=== PATIENT | female | born 1955 | race Caucasian/White ===

== ENCOUNTER 2017-08-19 20:14 | Emergency (ER) | payer MEDICARE, MEDICAID ==
[~2017-08-19] VITALS: Ht 165.1 cm; Wt 65.8 kg
[2017-08-19] MEDS ORDERED: HYDROcodone-ACET 10/325MG TAB PO ONE (21:15)
[2017-08-19 22:45] VITALS: BP 159/98
== END 2017-08-19 22:26 | disposition home or self-care (01) ==
LOC: ER 20:18
DX: S92.001A Unspecified fracture of right calcaneus, initial encounter for closed fracture (principal); I10 Essential (primary) hypertension; W22.8XXA Striking against or struck by other objects, initial encounter; Y93.89 Activity, other specified; Y99.8 Other external cause status; Y92.89 Other specified places as the place of occurrence of the external cause
CPT/HCPCS: 29515; 73610

== ENCOUNTER 2019-08-02 09:34 | Emergency (ER) | payer MEDICARE, MEDICAID ==
[~2019-08-02] VITALS: Ht 167.6 cm; Wt 59.0 kg
[2019-08-02] MEDS ORDERED: SODIUM CHLORIDE 0.9% 1,000 ML IV ONE ×2 (09:46)
[2019-08-02 10:25] LABS: Calcium 9.1 mg/dL (8.5-10.1); Chloride 98 mmol/L (98-107); Potassium 3.9 mmol/L (3.5-5.1); Sodium 128 mmol/L (136-145)
[2019-08-02 10:31] LABS: Basophils # (auto) 0.1 uL; Basophils % (auto) 0.4 % (0.0-2.0); Eosinophils # (auto) 0 uL; Hematocrit 44.6 % (36.0-46.0); Hemoglobin 15.1 g/dL (12.2-16.2); Lymphocytes # (auto) 1.9 uL; Lymphocytes % (auto) 15.2 % (10.0-50.0); Mean Corpuscular Hemoglobin 29.4 pg (28.0-32.0); Mean Corpuscular Hgb Conc. 33.8 g/dL (32.0-36.0); Monocytes # (auto) 0.9 uL; Monocytes % (auto) 7.5 % (0.0-12.0); Neutrophils # (auto) 9.7 uL; Neutrophils % (auto) 76.9 % (37.0-80.0); Platelet Count (auto) 203 10^3/uL (140-450); Red Blood Cells 5.13 10^6/uL (4.0-5.20); Red Cell Distribution Width 13.4 % (11.8-14.3); White Blood Cell 12.6 10^3/uL (4.4-10.8)
[2019-08-02 10:33] LABS: Alanine Aminotransferase 17 U/L (13-56); Albumin 3.5 g/dL (3.4-5.0); Alkaline Phosphatase 95 U/L (45-117); Anion Gap 11 (5-15); Aspartate Aminotransferase 23 U/L (15-37); BUN/Creatinine Ratio 29.8; Bilirubin, Total 0.9 mg/dL (0.2-1.0); Blood Urea Nitrogen 34 mg/dL (7-18); Carbon Dioxide 19 mmol/L (21-32); GFR African American 62 mL/min; GFR Non-African American 51 mL/min; Glucose 99 mg/dL (74-106); Total Protein 6.9 g/dL (6.4-8.2)
[2019-08-02] MEDS ORDERED: LABETALOL HCL 5 MG/ML 4ML SYRINGE IV ONE (10:45)
[2019-08-02] MEDS ORDERED: hydrALAZINE HCL 20 MG/ML VL IV ONE (13:15)
[2019-08-02] MEDS ORDERED: amLODIPine BESYLATE 5 MG TAB PO ONE (13:15)
[2019-08-02 14:12] LABS: Urine Bacteria NONE SEEN /hpf (None Seen); Urine Blood Negative /uL (Negative); Urine Hyaline Cast FEW /lpf (0 - 2); Urine Mucus FEW (None Seen); Urine Specific Gravity 1.019 (1.001-1.035); Urine WBC 3 /hpf (0 - 5)
[2019-08-02 15:46] VITALS: BP 145/91
== END 2019-08-02 16:31 | disposition home or self-care (01) ==
LOC: ER 09:34 → EDBD 09:34 → ER 16:31
DX: I10 Essential (primary) hypertension (principal); E86.0 Dehydration; B34.9 Viral infection, unspecified
CPT/HCPCS: 36415; 80053; 81001; 84484; 85025; 93005; 96361; 96374; 96375; 99284; J0360; J3490; J7030

== ENCOUNTER 2020-09-19 15:23 | Emergency (ER) | payer MEDICARE, MEDICAID ==
[~2020-09-19] VITALS: Ht 172.7 cm; Wt 63.5 kg
[2020-09-19 19:21] VITALS: BP 151/97
== END 2020-09-19 21:29 | disposition home or self-care (01) ==
LOC: ER 15:23 → EDBD 15:23 → ER 21:29
DX: E86.0 Dehydration (principal); F41.9 Anxiety disorder, unspecified; I10 Essential (primary) hypertension; Z59.0 Homelessness